=== PATIENT | male | born 1955 | race Caucasian/White ===

== ENCOUNTER 2018-09-20 10:31 | Day surgery (SDC) | payer BC, OTHER ==
[~2018-09-20] VITALS: Ht 175.3 cm; Wt 89.1 kg
[2018-09-20] MEDS ORDERED: FLONASE NASAL S16 GM NS (10:47)
[2018-09-20] MEDS ORDERED: ZYRTEC 10MG10 MG PO (10:47)
[2018-09-20] MEDS ORDERED: PRINZIDE 25 MG-1 TAB PO (10:47)
[2018-09-20 11:15] VITALS: BP 142/85; PULSE 66; TEMP 97.7
[2018-09-20 12:20] VITALS: BP 107/64; PULSE 66; TEMP 98.3
[2018-09-20 12:35] VITALS: BP 110/65; PULSE 63
[2018-09-20 12:50] VITALS: BP 128/80; PULSE 64
[2018-09-20 13:05] VITALS: BP 124/79; PULSE 59
== END 2018-09-20 13:20 | disposition home or self-care (01) ==
LOC: SDCO 10:31
DX: Z12.11 Encounter for screening for malignant neoplasm of colon (principal); K63.89 Other specified diseases of intestine
CPT/HCPCS: J2250; J3010; J7030

== ENCOUNTER → 2023-01-23 | Outpatient (CLI) | payer MEDICARE ==
[~2023-01-23] MED LIST: FLONASE NASAL S16 GM NS; PRINZIDE 25 MG-1 TAB PO; ZYRTEC 10MG10 MG PO
== END ==
LOC: COL.RAD 09:57
DX: Z13.6 Encounter for screening for cardiovascular disorders (principal)